=== PATIENT | male | born 1975 | race Caucasian/White ===

== ENCOUNTER 2021-03-01 12:13 | Day surgery (SDC) | payer BC ==
[2021-02-25 15:56] VITALS: BMI 34.2
[~2021-03-01 12:13] MED LIST: LACTATED RINGERS 1,000 ML IV SCH; LIDOCAINE 1% (10MG/ML) FOR IV START INTRADERMA PRN
[2021-03-01 12:32] VITALS: TEMP 97.8
[2021-03-01 12:42] LABS: Glucose,Whole Blood 159 mg/dL (75-99)
[2021-03-01] MEDS ORDERED: LACTATED RINGERS 1,000 ML IV ONE (12:43)
[2021-03-01] MEDS ORDERED: PROPOFOL 10 MG/ML 20 ML VIAL IV ONE (13:01)
[2021-03-01] MEDS ORDERED: LIDOCAINE 1% INJ 10MG/ML (20 ML MDV) ONE (13:01)
[2021-03-01] MEDS ORDERED: MIDAZOLAM 2 MG/2 ML VIAL ONE (13:01)
[2021-03-01] MEDS ORDERED: fentaNYL (PF) 50 MCG/ML 2 ML AMP ONE (13:01)
--- NOTE | 2021-03-01 13:22 | P.GSHP ---
History of Present Illness H&P Date: 03/01/21 Chief Complaint: Diarrhea This is a 45-year-old male with history of Crohn's disease. Patient has complaints of diarrhea. He presents today for colonoscopy Past Medical History Past Medical History: Diabetes Mellitus, Hyperlipidemia, Hypertension Additional Past Medical History / Comment(s): HX OF CROHN'S-IN REMISSION History of Any Multi-Drug Resistant Organisms: None Reported Past Surgical History: Orthopedic Surgery Additional Past Surgical History / Comment(s): ORIF LT ARM AGE 10. COLONOSCOPY Past Anesthesia/Blood Transfusion Reactions: No Reported Reaction Smoking Status: Current every day smoker - Past Family History Sister(s) Family Medical History: Cancer Medications and Allergies Home Medications Medication Instructions Recorded Confirmed Type Atorvastatin [Lipitor] 20 mg PO DAILY 02/25/21 02/25/21 History Dulaglutide [Trulicity] 4.5 mg SQ MO 02/25/21 02/25/21 History Pioglitazone [Actos] 30 mg PO DAILY 02/25/21 02/25/21 History lisinopriL 10 mg PO DAILY 02/25/21 02/25/21 History metFORMIN HCL [Glucophage] 1,000 mg PO BID 02/25/21 02/25/21 History Allergies Allergy/AdvReac Type Severity Reaction Status Date / Time No Known Allergies Allergy Verified 02/25/21 15:48 Surgical - Exam Vital Signs Temp Pulse Resp BP Pulse Ox 97.8 F 88 18 154/91 96 03/01/21 12:31 03/01/21 12:31 03/01/21 12:31 03/01/21 12:31 03/01/21 12:31 - General well developed, well nourished, no distress - Eyes PERRL - ENT normal pinna - Neck no masses - Respiratory normal expansion - Cardiovascular Rhythm: regular - Abdomen Abdomen: soft, non tender Results - Labs Abnormal Lab Results - Last 24 Hours (Table) 03/01/21 Range/Units 12:40 POC Glucose (mg/dL) 159 H (75-99) mg/dL Assessment and Plan Assessment: Diarrhea. We'll perform colonoscopy
--- NOTE | 2021-03-01 13:24 | P.OP ---
Date of Procedure: 03/01/21 Preoperative Diagnosis: Diarrhea Postoperative Diagnosis: Sigmoid colon polyp Random rectal biopsy pathology pending Procedure(s) Performed: Colonoscopy Anesthesia: MAC Surgeon: Cuco Hollingsworth Pathology: other (Multiple colon biopsies, sigmoid colon polyp) Condition: stable Disposition: PACU Description of Procedure: Patient's placed on the endoscopy table in the lateral position. He received IV sedation. Digital rectal exam was performed which revealed no ebonized. The flexible colonoscope was then placed patient anus passed throughout the entire colon. The ileocecal valve visualized. The cecum appeared normal. The right colon appeared normal. A random right colon biopsies performed: Forcep. The transverse colon appeared normal. Another random biopsies performed. The descending colon appeared normal. The sigmoid colon was visualized there was a small sessile polyp was removed the cold forcep. Another random rectal biopsies performed. Scope was withdrawn for patient. There is no evidence of any inflammatory changes the colon.
[2021-03-01 13:30] VITALS: RESP 16
[2021-03-01 13:51] VITALS: BP 121/79; PULSE 98
== END 2021-03-01 14:07 | disposition home or self-care (01) ==
LOC: ORWHC2ENDO 12:13
PROVIDERS: ATTEND Surgery
DX: D12.3 Benign neoplasm of transverse colon (principal); E11.9 Type 2 diabetes mellitus without complications; E78.5 Hyperlipidemia, unspecified; F17.200 Nicotine dependence, unspecified, uncomplicated; I10 Essential (primary) hypertension; K50.90 Crohn's disease, unspecified, without complications; Z79.84 Long term (current) use of oral hypoglycemic drugs
CPT/HCPCS: 45380; 88305; J2250; J2001; J3010; J2704